=== PATIENT | female | born 1995 | race African-American/Black ===

== ENCOUNTER 2023-03-09 08:57 | Emergency (ER) | payer MEDICAID ==
[~2023-03-09] VITALS: Ht 167.6 cm; Wt 77.0 kg
[2023-03-09 09:02] VITALS: BP 132/87; PULSE 84; RESP 20; TEMP 98.2; O2SAT 100
[2023-03-09] MEDS ORDERED: IBUP-2029 MT (11:09)
== END 2023-03-09 11:32 | disposition home or self-care (01) ==
LOC: ER 08:57
DX: N64.4 Mastodynia (principal)
CPT/HCPCS: 81025; 99282